=== PATIENT | female | born 1990 | race Caucasian/White ===

== ENCOUNTER 2022-08-26 09:48 | Outpatient (CLI) | payer OTHER, SELFPAY ==
[2022-08-26 14:23] LABS: Albumin* 4.6 g/dL (3.3-5.0); Chloride* 106 mmol/L (96-114)
[2022-08-26 14:24] LABS: Potassium* 4.9 mmol/L (3.6-5.1); Sodium* 140 mmol/L (135-149)
[2022-08-26 14:26] LABS: Bilirubin Total* 0.5 mg/dL (0.1-1.5); Creatinine* 0.9 mg/dL (0.5-1.5); Estimated Glomerular Filt Rate 88 ml/min
[2022-08-26 14:27] LABS: Alanine Aminotransferase* 17 U/L (4-35); Alkaline Phosphatase* 85 U/L (40-150); Aspartate Amino Transferase* 23 U/L (12-35); Blood Urea Nitrogen* 10 mg/dL (5-24); Calcium* 9.1 mg/dL (8.4-10.6); Carbon Dioxide* 23 mmol/L (20-32); Glucose* 84 mg/dL (60-115); Total Protein* 7.5 g/dL (6.0-8.3)
[2022-08-26 14:29] LABS: C Reactive Protein* 0.6 mg/dL (0.5-1.0)
[2022-08-26 15:26] LABS: Hepatitis C Virus Antibody* Negative (Negative)
== END 2022-08-26 09:49 | disposition home or self-care (01) ==
PROVIDERS: PCP Family Medicine; Visit Provider Family Medicine
DX: Z00.00 Encounter for general adult medical examination without abnormal findings (principal); M79.641 Pain in right hand; Z11.59 Encounter for screening for other viral diseases
CPT/HCPCS: 80053; 86140; 86803